=== PATIENT | male | born 1975 ===

== ENCOUNTER 2022-10-31 16:24 | Emergency (ER) | payer OTHER, SELFPAY ==
[2022-10-31 16:34] VITALS: BP 152/81; PULSE 82; RESP 16; TEMP 37.2; O2SAT 98; BMI 30.4
--- NOTE | 2022-10-31 16:40 | DI.RAD.S_ITS ---
PROCEDURE: XR THORACIC SPINE 2V INDICATIONS: fall. mid R side upper back pain TECHNIQUE: 2 views of the thoracic spine were acquired. COMPARISON: None. FINDINGS: Bones: No fractures or dislocations. No suspicious bony lesions. 12 pairs of ribs are noted, and appear intact where visualized. Soft tissues: No paravertebral stripe thickening. IMPRESSION: No acute compression fracture or spondylolisthesis in thoracic spine. Dictated by: Stefan Mccrary M.D. on 10/31/2022 at 17:16 Approved by: Stefan Mccrary M.D. on 10/31/2022 at 17:17
--- NOTE | 2022-10-31 17:42 | ED.BACK ---
HPI - Back Pain/Injury <Norma Thacker PA-C - Last Filed: 10/31/22 17:58> General Chief Complaint: Back Pain/Injury Stated Complaint: back issues Time Seen by Provider: 10/31/22 17:12 Source: patient History of Present Illness HPI Narrative: 46-year-old male with no reported past medical history presents to the ED with right-sided mid back pain subsequent to a fall last week. Patient states that pain is worsened withMovement. Patient denies numbness, tingling, weakness. Patient denies urinary hesitancy, urinary incontinence, bowel incontinence. Patient denies saddle paresthesias. Patient denies fever, chills, chest pain, shortness of breath. Related Data Previous Rx's Medication Instructions Recorded cyclobenzaprine 10 mg tablet 10 mg PO TID PRN muscle spasm 3 10/31/22 days #10 tabs Allergies Allergy/AdvReac Type Severity Reaction Status Date / Time No Known Drug Allergies Allergy Verified 10/31/22 16:40 Review of Systems <Norma Thacker PA-C - Last Filed: 10/31/22 17:58> Review of Systems ROS Unobtainable: All systems reviewed & are unremarkable except as noted in HPI and below Constitutional Constitutional: Denies chills, Denies fatigue, Denies fever(s), Denies frequent falls, Denies lethargy and Denies weakness Eyes Eyes: Denies change in vision, Denies eye discharge, Denies irritation and Denies loss of vision ENT Ears, Nose, Mouth, and Throat: Denies change in voice, Denies dizziness, Denies neck pain, Denies sore throat and Denies throat swelling Cardiovascular Cardiovascular: Denies chest pain, Denies irregular heart rhythm, Denies lightheadedness, Denies palpitations, Denies dyspnea, Denies dyspnea on exertion and Denies orthopnea Respiratory Respiratory: Denies cough, Denies dyspnea, Denies dyspnea on exertion and Denies wheezing Gastrointestinal Gastrointestinal: Denies abdominal pain, Denies change in bowel habits, Denies diarrhea, Denies nausea and Denies vomiting Genitourinary Genitourinary: Denies hematuria, Denies flank pain, Denies urinary incontinence and Denies urinary urgency Musculoskeletal Musculoskeletal: Reports back pain, Denies muscle weakness, Denies neck pain, Denies numbness and Denies tingling Integumentary/Breasts Skin/Breast: Denies pruritus, Denies erythema, Denies rash and Denies wounds Neurologic Neurologic: Denies behavioral changes, Denies confusion, Denies dizziness, Denies frequent falls, Denies loss of vision, Denies numbness, Denies tingling and Denies weakness Psychiatric Psychiatric: Denies anxiety, Denies behavioral changes, Denies confusion, Denies depression, Denies homicidal ideation and Denies suicidal ideation Endocrine Endocrine: Denies fatigue, Denies flushing and Denies palpitations Hematologic/Lymphatic Hematologic/Lymphatic: Denies easy bruising Allergic/Immunologic Allergic/Immunologic: Denies urticaria, Denies throat swelling and Denies wheezing Patient History <Norma Thacker PA-C - Last Filed: 10/31/22 17:58> Social History Smoking Status: Never smoker Smoking Status: Never smoker alcohol intake frequency: a few times a month Substance Use Type: does not use Exam <Nroma Thacker PA-C - Last Filed: 10/31/22 17:58> Narrative Exam Narrative: Const General:?cooperative, healthy appearing and comfortable [facility] Head:?normal to inspection Ears:?hearing grossly normal bilaterally Nose:?external nose normal Face and sinus:?normal facial exam and sinuses nontender Mouth:?oral mucosae normal Throat:?posterior oropharynx normal Eyes General:?appearance normal, both eyes and all related structures Neck Neck:?normal visual inspection and no lymphadenopathy noted Resp Effort & Inspection:?normal respiratory effort Auscultation:?clear to auscultation bilaterally Cardio Rate:?regular rate Rhythm:?regular rhythm Musculoskeletal No midline tenderness to palpation. No paraspinal tenderness to palpation. Strength and sensation is intact. Full range of motion. Gait is normal. Patient is neurovascularly intact. Neuro General:?patient alert, patient awake and patient oriented x3 Initial Vital Signs Initial Vital Signs: Vital Signs Temperature 99 F 10/31/22 16:34 Pulse Rate 82 10/31/22 16:34 Respiratory Rate 16 10/31/22 16:34 Blood Pressure 152/81 H 10/31/22 16:34 Pulse Oximetry 98 10/31/22 16:34 Oxygen Delivery Method Room Air 10/31/22 16:34 <Janell Foss DO - Last Filed: 11/01/22 08:02> Initial Vital Signs Initial Vital Signs: Vital Signs Temperature 99 F 10/31/22 16:34 Pulse Rate 82 10/31/22 16:34 Respiratory Rate 16 10/31/22 16:34 Blood Pressure 152/81 H 10/31/22 16:34 Pulse Oximetry 98 10/31/22 16:34 Oxygen Delivery Method Room Air 10/31/22 16:34 Course <Norma Thacker PA-C - Last Filed: 10/31/22 17:58> Orders Ordered: Discontinued Medications Lidocaine (Lidocaine Patch 1 Each Adh..Patch) 1 each TOP NOW ONE Stop: 10/31/22 17:50 Last Admin: 10/31/22 17:52 Dose: 1 each Documented By: RB Vital Signs Vital signs: Vital Signs - 8 hr 10/31/22 16:34 Temperature 99 F Pulse Rate 82 Respiratory Rate 16 Blood Pressure 152/81 H Pulse Oximetry 98 Oxygen Delivery Method Room Air <Janell Foss DO - Last Filed: 11/01/22 08:02> Orders Ordered: Discontinued Medications Lidocaine (Lidocaine Patch 1 Each Adh..Patch) 1 each TOP NOW ONE Stop: 10/31/22 17:50 Last Admin: 10/31/22 17:52 Dose: 1 each Documented By: RB Vital Signs Vital signs: Vital Signs - 8 hr 10/31/22 16:34 Temperature 99 F Pulse Rate 82 Respiratory Rate 16 Blood Pressure 152/81 H Pulse Oximetry 98 Oxygen Delivery Method Room Air MDM - Back Pain/Injury <Norma Thacker PA-C - Last Filed: 10/31/22 17:58> MDM Narrative Medical decision making narrative: 46-year-old male with no reported past medical history presents to the ED with right-sided mid back pain subsequent to a fall last week. Concern for fracture /dislocation versus musculoskeletal sprain/ strain. Obtained x-rays that showed no acute findings. Patient's symptoms likely due to musculoskeletal sprain/ strain. Applied lidocaine patch. Prescribed cyclobenzaprine. Recommend supportive care with ibuprofen, naproxen, Tylenol, lidocaine patches, muscle relaxants. Recommend follow-up with PCP as soon as possible for further evaluation and PT referral. ED return precautions were discussed with patient. Patient verbalized understanding. Medical records reviewed: Yes Discharge Plan Departure Patient Disposition: Home Clinical Impression: Back pain Instructions: DI for Back Strain or Sprain Activity Restrictions/Additional Instructions: You were evaluated in the ED today for mid back pain. Your x-ray did not show any fractures or dislocations. Your symptoms are likely due to a musculoskeletal sprain/ strain. You may apply lidocaine patches, take Tylenol, ibuprofen/ naproxen. Please follow-up with your PCP for further evaluation, physical therapy referral. You were also being prescribed muscle relaxants for the next few days. Return to the ED if your worsening symptoms, numbness, tingling, weakness, urinary difficulties. Prescriptions: New cyclobenzaprine 10 mg tablet 10 mg PO TID PRN (Reason: muscle spasm) 3 Days Qty: 10 0RF Stand Alone Forms: Patient Portal/API <Janell Foss DO - Last Filed: 11/01/22 08:02> Cosign ED Attending Nathan Attestation: I was immediately available in the department for consultation. Documentation has been reviewed.
[2022-10-31] MEDS: LIDOCAINE PATCH 1 EACH ADH..PATCH TOP (17:52)
[2022-10-31 17:56] VITALS: BP 148/68; PULSE 78; RESP 18; O2SAT 98
== END 2022-10-31 17:57 | disposition home or self-care (01) ==
PROVIDERS: Emergency Provider Student in an Organized Health Care Education/Training Program
DX: M54.6 Pain in thoracic spine (principal)
CPT/HCPCS: 72070; 99282